=== PATIENT | male | born 1980 | race Caucasian/White ===

== ENCOUNTER 2023-10-05 01:33 | Observation (INO) | payer BC ==
[~2023-10-05] VITALS: Ht 185.4 cm; Wt 111.1 kg
[2023-10-05 01:38] VITALS: BP 146/77; PULSE 81; RESP 18; TEMP 97.6; O2SAT 93
[2023-10-05 01:51] LABS: APPEARANCE,URINE HAZY; BILIRUBIN,URINE NEGATIVE (NEGATIVE); LEUKOCYTE ESTERASE ,URINE NEGATIVE (NEGATIVE); NITRATE,URINE NEGATIVE (NEGATIVE); UA COLOR YELLOW; UROBILINOGEN,URINE 0.2 E.U./dL (0.2)
[2023-10-05] MEDS ORDERED: TORADOL ONE (01:59)
[2023-10-05] MEDS ORDERED: TORADOL IM PRN (02:00)
[2023-10-05 02:12] LABS: BASOPHIL % 0.7 % (0.0-0.2); EOSINOPHIL # 0.2 10^3/uL (0.0-0.2); EOSINOPHIL % 3.1 % (0.0-5.0); HEMATOCRIT(ML) 38.4 % (37.0-53.0); HEMOGLOBIN 13.3 g/dL (13.9-16.3); LYMPHOCYTES # 1.73 10^3/uL1 (1.0-4.8); LYMPHOCYTES % 28.3 % (24.0-44.0); MEAN CORP HGB 31.1 pg (26-34); MEAN CORP HGB CONCENTRATION 34.6 g/dL (33-36.5); MEAN CORP VOLUME 89.9 fL (78-100); MONOCYTES # 0.6 10^3/uL (0.3-0.8); NEUTROPHIL # 3.6 10^3/uL (1.8-7.7); NEUTROPHILS % 58.9 % (41.0-85.0); PLATELET COUNT 106 10^3/uL (150-400); RED BLOOD CELL 4.27 10^6/uL (4.50-5.90); RED CELL DISTRIBUTION WIDTH 14.5 % (11.5-14.5); WHITE BLOOD CELL 6.1 10^3/uL (4.5-11.0)
[2023-10-05 02:15] LABS: +ADD MANUAL DIFF(NO CHRG) NO
[2023-10-05 02:25] LABS: INR 0.9; PROTHROMBIN PROTIME 9.6 SEC (9.7-11.6)
[2023-10-05 02:26] LABS: ALBUMIN(ML) 3.5 g/dL (3.4-5.0); ALBUMIN/GLOBULIN RATIO 0.945; ANION GAP 12.2; BUN/CREATININE RATIO 10.41 (10.0-20.0); CARBON DIOXIDE 23.3 mmol/L (20.0-32); CREATININE SERUM 1.44 mg/dL (0.59-1.40); EST GFR, NON-AA 54.1 (>/=60); POTASSIUM 3.5 mmol/L (3.6-5.2)
[2023-10-05] MEDS ORDERED: NS 1000ML 1,000 ML IV STA (02:51)
[2023-10-05] MEDS ORDERED: SUBLIMAZE 100MCG/2ML IV STA (02:51)
[2023-10-05] MEDS ORDERED: SUBLIMAZE 100MCG/2ML ONE (03:25)
[2023-10-05] MEDS ORDERED: NS 1000ML 1,000 ML ONE (03:25)
[2023-10-05 03:50] VITALS: BP 122/73; PULSE 74; TEMP 98.8; O2SAT 95
[2023-10-05] MEDS ORDERED: MORPHINE SULFATE IV PRN (04:00)
[2023-10-05] MEDS ORDERED: KCL 20 MEQ/100 ML SOL 100 ML IV ONE (04:00)
[2023-10-05] MEDS ORDERED: NS 500ML 500 ML IV ONE (04:48)
[2023-10-05 07:00] VITALS: BP 128/76; PULSE 78; TEMP 97.9; O2SAT 96
[2023-10-05] MEDS ORDERED: FLOMAX PO SCH (09:00)
[2023-10-05] MEDS ORDERED: PEPCID IV SCH (09:00)
[2023-10-05 09:07] LABS: ALBUMIN(ML) 3.5 g/dL (3.4-5.0); ALBUMIN/GLOBULIN RATIO 0.921; ANION GAP 12.2; BUN/CREATININE RATIO 15.07 (10.0-20.0); CALCIUM 9.6 mg/dL (8.4-10.5); CARBON DIOXIDE 22.7 mmol/L (20.0-32); CREATININE SERUM 1.26 mg/dL (0.59-1.40); EST GFR, NON-AA 63.1 (>/=60); INR 0.9; POTASSIUM 3.9 mmol/L (3.6-5.2); PROTHROMBIN PROTIME 9.8 SEC (9.7-11.6)
[2023-10-05 13:00] VITALS: BP 143/77; PULSE 77; TEMP 98.1; O2SAT 96
[2023-10-05] MEDS ORDERED: OXY-IR PO PRN ×2 (13:00→13:30)
[2023-10-05] MEDS ORDERED: TYLENOL PO SCH ×2 (13:00→13:30)
[2023-10-05 15:20] VITALS: BP 143/77; PULSE 96; RESP 19; TEMP 98.1; O2SAT 96
[2023-10-05] MEDS ORDERED: LOVENOX SQ SCH (18:00)
[2023-10-06 07:20] LABS: HEP A AB, IgM Negative (Negative)
== END 2023-10-05 15:20 | disposition home or self-care (01) ==
LOC: ER 01:33 → MS 02:53
PROVIDERS: ADMIT Internal Medicine; ATTEND Internal Medicine
DX: N13.2 Hydronephrosis with renal and ureteral calculous obstruction (principal); N17.9 Acute kidney failure, unspecified; K74.60 Unspecified cirrhosis of liver; E66.9 Obesity, unspecified; Z90.89 Acquired absence of other organs; Z68.32 Body mass index [BMI] 32.0-32.9, adult
CPT/HCPCS: 96372; 96374; 96361; 96375; 99284; 74176; 80053 ×2; 85025; 36415; 80074; 81001; 85610 ×2; 85730; G0378 ×12; J7040; J7030; J1885; J3480; J3010; J3490